=== PATIENT | female | born 1950 | race Caucasian/White ===

== ENCOUNTER 2020-11-14 15:01 | Outpatient (CLI) | payer MEDICARE, SELFPAY ==
--- NOTE | 2020-11-14 15:06 | MM_ITS ---
WS: [id number] BILATERAL SCREENING DIGITAL MAMMOGRAM WITH CAD HISTORY: SCREENING COMPARISON: 11/24/2018, 04/05/2017 and 11/12/2013 Bilateral CC and MLO views submitted. Computer aided detection analyzed. Breast composition: There are scattered areas of fibroglandular density. No suspicious masses, microc alcifications or architectural distortion. Stable asymmetries in the lateral RIGHT breast since 2013. MM/[place] [id number] IMPRESSION: BI-RADS: 2-Benign FOLLOW UP: 1 Year Follow-up
== END 2020-11-14 15:02 | disposition home or self-care (01) ==
LOC: RADSHAW 15:05
PROVIDERS: Family Provider Family Medicine; PCP Family Medicine; Visit Provider Family Medicine
DX: Z12.31 Encounter for screening mammogram for malignant neoplasm of breast (principal)
CPT/HCPCS: 77067

== ENCOUNTER 2021-12-27 11:55 | Outpatient (CLI) | payer MEDICARE, SELFPAY ==
--- NOTE | 2021-12-27 12:08 | XR_ITS ---
WS: [id number] SCREENING DEXA SCAN Are You a Human CLINICAL INFORMATION: AGE-RELATED OSTEOPOROSIS COMPARISON: 2018 FINDINGS: The L1-L4 bone mineral density measures 0.992 g/cm2. This corresponds to a T score score of -1.6 and Z score of -0.1. Left femoral neck bone mineral density measures 0.447 g/cm2. This corresponds to a T score of -4.5 an d Z score of -2.9. Right femoral neck bone mineral density measures 0.660 g/cm2. This corresponds to a T score -2.8of an d Z score of -1.3. Mean femoral neck bone mineral density measures 0.553 g/cm2. This corresponds to a T score of -3.6 an d Z score of -2.1. XR/XR DEXA axial skeleton* [id number] IMPRESSION: Osteopenia lumbar spine. Osteoporosis femoral necks. Patient's FRAX calculated 10 year probability for major osteoporotic fracture i s 88.9 % and osteoporotic hip fracture is 86.6%.
--- NOTE | 2021-12-27 12:08 | MM_ITS ---
WS: [id number] BILATERAL SCREENING 3D TOMOSYNTHESIS DIGITAL MAMMOGRAM WITH CAD HISTORY: SCREENING COMPARISON: 11/14/2020 and 11/24/2018 Bilateral CC and MLO views submitted. Computer aided detection analyzed. Breast composition: There are scattered areas of fibroglandular density. No suspicious masses, microc alcifications or architectural distortion. Bilateral breast calcifications. MM/[place] [id number] IMPRESSION: BI-RADS: 2-Benign FOLLOW UP: 1 Year Follow-up
== END 2021-12-27 11:56 | disposition home or self-care (01) ==
LOC: RADSHAW 11:56
PROVIDERS: Family Provider Family Medicine; PCP Family Medicine; Visit Provider Family Medicine
DX: Z12.31 Encounter for screening mammogram for malignant neoplasm of breast (principal); M81.0 Age-related osteoporosis without current pathological fracture
CPT/HCPCS: 77063; 77067; 77080

== ENCOUNTER → 2022-12-18 14:31 | Outpatient (BNVA) | payer MEDICARE, SELFPAY | PROVIDERS: Family Provider Family Medicine; PCP Family Medicine; Visit Provider Dermatology | DX: L40.0 Psoriasis vulgaris (principal); Z48.02 Encounter for removal of sutures | CPT/HCPCS: 99213 ==

== ENCOUNTER → 2023-01-23 15:31 | Outpatient (BNVA) | payer MEDICARE, SELFPAY | PROVIDERS: Family Provider Family Medicine; PCP Family Medicine; Visit Provider Nurse Practitioner Family | DX: L40.0 Psoriasis vulgaris (principal); L81.4 Other melanin hyperpigmentation; D22.5 Melanocytic nevi of trunk; Z71.89 Other specified counseling; L85.3 Xerosis cutis | CPT/HCPCS: 99214 ==

== ENCOUNTER 2023-05-29 09:10 | Outpatient (CLI) | payer MEDICARE, SELFPAY ==
[2023-05-29 09:52] VITALS: BMI 27.4
--- NOTE | 2023-05-29 09:53 | ECG_ITS ---
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 Interpretive Statements NAME OF STUDY: LEXISCAN SESTAMIBI STRESS TEST INDICATION: Chest Pain PROCEDURE: At the baseline, the blood pressure was 144/76 mm Hg with a heart rate of 60 bpm. The electrocardiogram showed sinus rhythm, right axis deviation.RBBB. The Lexiscan was infused over a period of 20 seconds. A total of 0.4 milligrams of Lexiscan was infused. The stress phase was continued for a total of 5 minutes. Heart rate at the end of the stress phase was 71 bpm with a blood pressure of 128/71 mm Hg. The EKG at the peak infusion revealed no significant ST-T wave changes. Sestamibi was injected 20 seconds after the Lexiscan infusion. Blood pressure at the end of the recovery phase was 132/72 mm Hg with a heart rate of 65 beats per minute. CONCLUSION: 1. No significant EKG changes with the LexiScan infusion. 2. No LexiScan induced chest pain or cardiac arrhythmia. 3. Normal blood pressure and heart rate response. 4. Sestamibi/sestamibi perfusion scan pending; see separate report. Electronically Signed On 06-03-2023 10:12:41 CDT by Keren Carroll M.D. [email or web address]
--- NOTE | 2023-05-29 09:54 | NMCV_ITS ---
NM luci perf SPECT r/s* [id number] Shantal Sierra Age: 73 Gender: F : 1950 Exam Date: 05/29/2023 10:22 Ordering Phys: Gayathri Art MD Technologist: PIYUSH Denise Exam Location: [facility] Indications: CHEST PAIN, GERD STRESS TEST Please see separate stress test report in [facility] for full findings IMAGE PROTOCOL Rest/Stress 1 Lexiscan Day Radiopharmaceutical Dose (mCi) Administration Site Administered by Rest: Tc-99m 10.7 IV PIYUSH Crisostomo Sestamibi Stress:Tc-99m 32.5 IV PIYUSH Crisostomo Sestamibi Rest: 05/29/2023 60 Discovery 630 Stress: 05/29/2023 30 Discovery 630 0.4mg Lexiscan. Images obtained in supine and prone position. SPECT RESULTS Technical Quality: Excellent Raw Data Analysis: Normal Image Corrections: No attenuation or motion correction applied Summed Stress Score: 0 Summed Rest Score: 2 Summed Difference Score: 0 PERFUSION FINDINGS SPECT images demonstrate homogeneous tracer distribution throughout the myocardium. FUNCTIONAL RESULTS (calculated via Gated SPECT) Stress Image LV EF (%): 67 Stress EDV (mL):67 TID: 1.04 Stress ESV (mL):22 FUNCTIONAL FINDINGS: The left ventricle is normal in size. Transient Ischemia Dilatation of 1. The left ventricular ejection fraction is normal with a value of 67%. There is normal left ventricular wall thickening. Normal end diastolic end-systolic volumes. IMPRESSIONS 1. Myocardial perfusion imaging is normal. 2. Overall left ventricular systolic function is normal without regional wall motion abnormalities, LVEF=67%. 3. EKG portion of the study will be reported separately. 4. Scan indicates low risk for cardiac events. Keren Carroll MD (Electronically Signed) Final Date: 29 May 2023 14:11 S
[2023-05-29] MEDS: regadenoson 0.4 Mg/5 ml Syringe IVP (11:03)
[2023-05-29 11:14] VITALS: BP 132/72; PULSE 63
== END 2023-05-29 09:11 | disposition home or self-care (01) ==
LOC: CDL 09:11
PROVIDERS: PCP Family Medicine; Visit Provider Family Medicine
DX: R07.9 Chest pain, unspecified (principal); K21.9 Gastro-esophageal reflux disease without esophagitis
CPT/HCPCS: 36415; 78452; 93017; 96374; A9500; J2785

== ENCOUNTER 2024-02-03 14:58 | Outpatient (CLI) | payer MEDICARE, SELFPAY ==
--- NOTE | 2024-02-03 15:14 | XRR_ITS ---
PROCEDURE INFORMATION: Exam: XR Lumbosacral Spine Exam date and time: 02/03/2024 3:17 PM Age: 73 years old Clinical indication: Pain; [place]; TECHNIQUE: Imaging protocol: Radiologic exam of the lumbosacral spine. Views: 2 or 3 views. COMPARISON: No relevant prior studies available. FINDINGS: Bones/joints: A 3 degree leftward lateral curvature of the lumbar spine. There are urbo-eo-vryzqwak degenerative changes across the sacroiliac joints. Multilevel lower thoracic and lumbar marginal osteophyte formations. Multilevel facet arthropathy most prominent in the lower lumbar spine. Slight grade 1 degenerative anterolisthesis of L4 on L5. Soft tissues: Unremarkable. Organs: Clips are present in the right upper quadrant consistent with prior cholecystectomy. XR/XR lumbar spine 2-3V* [id number] IMPRESSION: There are degenerative changes as described above. No evidence for acute fracture.
== END 2024-02-03 14:59 | disposition home or self-care (01) ==
LOC: RAD 15:06
PROVIDERS: PCP Family Medicine; Visit Provider Family Medicine
DX: M47.816 Spondylosis without myelopathy or radiculopathy, lumbar region (principal); M47.818 Spondylosis without myelopathy or radiculopathy, sacral and sacrococcygeal region
CPT/HCPCS: 72100

== ENCOUNTER 2024-02-20 10:37 | Outpatient (CLI) | payer MEDICARE, SELFPAY ==
--- NOTE | 2024-02-20 11:00 | MM_ITS ---
WS: [id number] BILATERAL SCREENING DIGITAL TOMOSYNTHESIS MAMMOGRAM WITH CAD HISTORY: SCREENING COMPARISON: 12/27/2021, 04/05/2017 and 11/14/2020 Bilateral CC and MLO views with tomosynthesis and synthetic mammography submitted. Computer aided det ection analyzed. Breast composition: There are scattered areas of fibroglandular density. No suspicious masses, microc alcifications or architectural distortion. Reidentified is asymmetry in the lateral RIGHT breast seen best on the CC projection. Stable lymph node towards the axillary tail of the RIGHT breast. Benign c alcifications. MM/[place] [id number] IMPRESSION: BI-RADS: 2-Benign FOLLOW UP: 1 Year Follow-up
== END 2024-02-20 10:38 | disposition home or self-care (01) ==
PROVIDERS: PCP Family Medicine; Visit Provider Family Medicine
DX: Z12.31 Encounter for screening mammogram for malignant neoplasm of breast (principal); R92.323 Mammographic fibroglandular density, bilateral breasts; N64.89 Other specified disorders of breast; N63.10 Unspecified lump in the right breast, unspecified quadrant; R92.1 Mammographic calcification found on diagnostic imaging of breast
CPT/HCPCS: 77063; 77067

== ENCOUNTER 2025-03-08 13:16 | Outpatient (CLI) | payer MEDICARE, SELFPAY ==
--- NOTE | 2025-03-08 13:21 | XR_ITS ---
WS: [id number] SCREENING DEXA SCAN [employer] CLINICAL INFORMATION: OSTEOPOROSIS COMPARISON: 2021 FINDINGS: The L1-L4 bone mineral density measures 1.011 g/cm2. This corresponds to a T score score of -1.4 and Z score of 0.3. Left femoral neck bone mineral density measures 0.739 g/cm2. This corresponds to a T score of -2.1 and Z score of -0.3. Right femoral neck bone mineral density measures 0.809 g/cm2. This corresponds to a T score -1.6of and Z score of 0.2. Mean femoral neck bone mineral density measures 0.774 g/cm2. This corresponds to a T score of -1.9 and Z score of -0.1. XR/XR DEXA axial skeleton* [id number] IMPRESSION: Osteopenia lumbar spine. Osteopenia femoral necks. Patient's FRAX calculated 10 year probability for major osteoporotic fracture i s 28.8% and osteoporotic hip fracture is 18.4%. Bone density lumbar spine increased 1.9% Bone density femoral necks increased 40.0%
== END 2025-03-08 13:17 | disposition home or self-care (01) ==
PROVIDERS: PCP Family Medicine; Visit Provider Family Medicine
DX: Z13.820 Encounter for screening for osteoporosis (principal); Z78.0 Asymptomatic menopausal state; M85.89 Other specified disorders of bone density and structure, multiple sites
CPT/HCPCS: 77080

== ENCOUNTER 2025-03-11 08:47 | Outpatient (CLI) | payer MEDICARE, SELFPAY ==
--- NOTE | 2025-03-11 09:00 | MM_ITS ---
WS: [id number] BILATERAL SCREENING DIGITAL TOMOSYNTHESIS MAMMOGRAM WITH CAD HISTORY: SCREENING COMPARISON: 02/20/2024, 12/27/2021 Bilateral CC and MLO views with tomosynthesis and synthetic mammography submitted. Computer aided detection analyzed. Breast composition: There are scattered areas of fibroglandular density. No suspicious masses, microcalcifications or architectural distortion. Arterial calcifications and scattered round calcifications. Nodular asymmetry in the upper outer quadrant of the RIGHT breast is stable. MM/MM scr BI tomosynthesis [id number] IMPRESSION: BI-RADS: 2 - Benign. FOLLOW UP: 1 Year Follow-up
== END 2025-03-11 08:48 | disposition home or self-care (01) ==
LOC: MOBLMAM 08:49
PROVIDERS: PCP Nurse Practitioner Family; Visit Provider Nurse Practitioner Family
DX: Z12.31 Encounter for screening mammogram for malignant neoplasm of breast (principal); R92.323 Mammographic fibroglandular density, bilateral breasts; R92.1 Mammographic calcification found on diagnostic imaging of breast; R92.8 Other abnormal and inconclusive findings on diagnostic imaging of breast
CPT/HCPCS: 77063; 77067

== ENCOUNTER 2025-08-23 10:02 | Outpatient (CLI) | payer MEDICARE, SELFPAY ==
--- NOTE | 2025-08-23 10:11 | CT_ITS ---
WS: [id number] CT HEAD TECHNIQUE: Noncontrast CT of the head obtained from the skullbase to the vertex. CLINICAL INFORMATION: MEMORY CHANGES COMPARISON: None. DLP: 1038.[address] scans at [facility] use at least one of these dose optimization techniques: automated exposure control; mA and/or kV adjustment per patient size (includes targeted exams where dose is matched to clinical indication); or iterative reconstruction. FINDINGS: No evidence of intracranial hemorrhage or mass effect. Ventricular system and basal cisterns are patent. Mild small vessel changes with moderate parenchymal volume loss. No extra-axial fluid collections. No evidence of mass or mass effect. Vascular calcification. Paranasal sinuses and mastoid air cells are well aerated. .Normal visualized soft tissues. CT/CT head wo con* [id number] IMPRESSION: 1. No evidence of intracranial hemorrhage or mass effect. 2. Mild small vessel changes. Moderate parenchymal volume loss. 3. Vascular calcification. 4. No acute intracranial findings.
== END 2025-08-23 10:03 | disposition home or self-care (01) ==
PROVIDERS: PCP Nurse Practitioner Family; Visit Provider Nurse Practitioner Family
DX: R41.3 Other amnesia (principal); I67.2 Cerebral atherosclerosis; R93.0 Abnormal findings on diagnostic imaging of skull and head, not elsewhere classified
CPT/HCPCS: 70450